=== PATIENT | male | born 1995 | race Caucasian/White ===

== ENCOUNTER 2017-04-04 20:35 | Inpatient (IN) | payer MEDICAID, OTHER ==
[~2017-04-04] VITALS: Ht 170.2 cm; Wt 72.0 kg
[~2017-04-04 20:35] MED LIST: CLON1 PO; DIVA500T52 PO; GUAN1TAB22 PO; OLAN10TA3 PO
[2017-04-04 20:58] LABS: BASOPHILS % (AUTO) 0.7 % (0.0-2.0); EOSINOPHILS % (AUTO) 5.3 % (1.0-6.0); HEMATOCRIT 43.5 % (41-53); LYMPHOCYTES # (AUTO) 2.2 K/uL (1.0-4.8); LYMPHOCYTES % (AUTO) 38.9 % (22.0-44.0); MEAN CORPUSCULAR HEMOGLOBIN 29.3 pg (26.0-34.0); MEAN CORPUSCULAR HGB CONC 34.5 G/dL (31.0-37.0); MEAN CORPUSCULAR VOLUME 85 fL (80-100); MONOCYTES # (AUTO) 0.7 K/uL (0.1-1.0); MONOCYTES % (AUTO) 11.5 % (2.0-9.0); NEUTROPHILS # (AUTO) 2.5 K/uL (1.8-7.7); NEUTROPHILS % (AUTO) 43.6 % (40.0-70.0); PLATELET COUNT (AUTO) 172 K/uL (150-450); RED BLOOD CELL COUNT(AUTO) 5.11 MIL/uL (4.50-5.90); RED CELL DISTRIBUTION WIDTH 14.1 % (11.5-14.5); WHITE BLOOD COUNT (AUTO) 5.8 K/uL (4.5-11.0)
[2017-04-04 21:04] LABS: ANION GAP 6 mmol/L (8-16); CALCIUM, TOTAL 8.8 mg/dL (8.8-10.5); CARBON DIOXIDE 31 mmol/L (22-29); CHLORIDE 107 mmol/L (98-107); CREATININE 0.96 mg/dL (0.60-1.30); GLOMERULAR FILTR. RATE CALC > 60 mL/min (>60); POTASSIUM 4.4 mmol/L (3.5-5.1); SODIUM SERUM 144 mmol/L (136-145); UREA NITROGEN, BLOOD 13 mg/dL (7-18)
[2017-04-04 21:10] LABS: ALANINE AMINOTRANSFERASE 68 U/L (12-78); ALBUMIN 3.9 g/dL (3.4-5.0); ASPARTATE AMINOTRANSFERASE 29 U/L (15-37); BILIRUBIN,TOTAL 0.4 mg/dL (0.1-1.0); TOTAL PROTEIN, SERUM 7.4 g/dL (6.4-8.2)
[2017-04-04] MEDS ORDERED: LORazepam 2 MG/ML VIAL IM ONE ×2 (22:45)
[2017-04-04] MEDS ORDERED: HALOPERIDOL LACTATE 5 MG/ML VIAL IM ONE ×2 (22:45)
[2017-04-04] MEDS ORDERED: DiphenhydrAMINE HCL 50 MG/ML VIAL IM ONE ×2 (22:45)
[2017-04-04 23:35] LABS: CHOL/HDL RATIO 2.8 (4.2-7.3); THYROID STIMULATING HORMONE 2.03 uIU/mL (0.36-3.74)
[2017-04-05 02:20] VITALS: BP 107/65
[2017-04-05 03:53] LABS: GLUCOSE,POINT OF CARE 78 MG/DL (70-110)
[2017-04-05] MEDS ORDERED: INFLUENZA VIRUS VACCINE QVS 2017-18 (3YR+)/PF 60 MCG/0.5 ML SYRINGE IM ONE (04:15)
[2017-04-05 08:19] LABS: BASOPHILS % (AUTO) 0.5 % (0.0-2.0); EOSINOPHILS % (AUTO) 5.1 % (1.0-6.0); HEMATOCRIT 41.1 % (41-53); HEMOGLOBIN 13.9 g/dL (13.5-17.5); LYMPHOCYTES # (AUTO) 3.1 K/uL (1.0-4.8); LYMPHOCYTES % (AUTO) 46.1 % (22.0-44.0); MEAN CORPUSCULAR HEMOGLOBIN 29.1 pg (26.0-34.0); MEAN CORPUSCULAR HGB CONC 33.9 G/dL (31.0-37.0); MEAN CORPUSCULAR VOLUME 86 fL (80-100); MONOCYTES # (AUTO) 0.7 K/uL (0.1-1.0); MONOCYTES % (AUTO) 9.9 % (2.0-9.0); NEUTROPHILS # (AUTO) 2.6 K/uL (1.8-7.7); NEUTROPHILS % (AUTO) 38.4 % (40.0-70.0); PLATELET COUNT (AUTO) 156 K/uL (150-450); RED BLOOD CELL COUNT(AUTO) 4.78 MIL/uL (4.50-5.90); WHITE BLOOD COUNT (AUTO) 6.7 K/uL (4.5-11.0)
[2017-04-05] MEDS ORDERED: LOPERAMIDE HCL 2 MG CAPSULE PO PRN (09:15)
[2017-04-05] MEDS ORDERED: ALBUTEROL SULFATE HFA 90 MCG/PUFF 8 GM INHALER IH PRN (09:15)
[2017-04-05] MEDS ORDERED: MAG HYDROX/AL HYDROX/SIMETH ES 30 ML SUSPENSION UDCUP PO PRN (09:15)
[2017-04-05] MEDS ORDERED: ACETAMINOPHEN 325 MG TABLET PO PRN (09:15)
[2017-04-05] MEDS ORDERED: MAGNESIUM HYDROXIDE SUSPENSION 30 ML UDCUP PO PRN (09:15)
[2017-04-05] MEDS ORDERED: CloNIDine HCL 0.1 MG TABLET PO PRN (09:15)
[2017-04-05] MEDS ORDERED: BENZOCAINE/MENTHOL LOZENGE MM PRN (09:15)
[2017-04-05] MEDS ORDERED: IBUPROFEN 600 MG TABLET PO PRN (09:15)
[2017-04-05] MEDS ORDERED: PETROLATUM,WHITE 71 GM JELLY TP PRN (09:15)
[2017-04-05] MEDS ORDERED: BACITRACIN 28.4 GM OINTMENT TP PRN (09:15)
[2017-04-05] MEDS ORDERED: ONDANSETRON HCL 4 MG TABLET PO PRN (09:15)
[2017-04-05 11:22] VITALS: BP 110/73
[2017-04-05 16:00] VITALS: BP 117/68
[2017-04-05] MEDS: LORazepam 2 MG TABLET PO PRN (18:58)
[2017-04-05] MEDS: HALOPERIDOL 5 MG TABLET PO PRN (18:58)
[2017-04-05] MEDS: DIVALPROEX SODIUM 500 MG DR TABLET PO SCH (20:25)
[2017-04-05] MEDS: OLANZapine 10 MG TABLET PO SCH (20:25)
[2017-04-06 06:35] VITALS: BP 135/76
[2017-04-06] MEDS: DIVALPROEX SODIUM 500 MG DR TABLET PO SCH ×2 (08:55→21:58)
[2017-04-06] MEDS: LORazepam 2 MG TABLET PO PRN ×3 (08:55→23:53)
[2017-04-06] MEDS: ClonazePAM 1 MG TABLET PO SCH ×3 (08:55→17:10)
[2017-04-06] MEDS: HALOPERIDOL 5 MG TABLET PO PRN ×2 (17:10→23:53)
[2017-04-06] MEDS: OLANZapine 10 MG TABLET PO SCH (21:59)
[2017-04-07] MEDS: ZOLPIDEM TARTRATE 10 MG TABLET PO PRN ×2 (00:46→21:50)
[2017-04-07] MEDS: LORazepam 2 MG TABLET PO PRN (10:00)
[2017-04-07] MEDS: DIVALPROEX SODIUM 500 MG DR TABLET PO SCH ×2 (10:01→20:51)
[2017-04-07] MEDS: ClonazePAM 1 MG TABLET PO SCH ×3 (10:01→17:17)
[2017-04-07] MEDS: HALOPERIDOL 5 MG TABLET PO PRN (10:01)
[2017-04-07 10:39] VITALS: BP 119/75
[2017-04-07 16:07] VITALS: BP 122/78
[2017-04-07] MEDS: OLANZapine 10 MG TABLET PO SCH (20:51)
[2017-04-08] MEDS: DIVALPROEX SODIUM 500 MG DR TABLET PO SCH ×2 (07:49→20:49)
[2017-04-08] MEDS: HALOPERIDOL 5 MG TABLET PO PRN ×2 (07:49→21:15)
[2017-04-08] MEDS: LORazepam 2 MG TABLET PO PRN (07:49)
[2017-04-08] MEDS: ClonazePAM 1 MG TABLET PO SCH ×3 (07:49→17:38)
[2017-04-08 16:14] VITALS: BP 119/79
[2017-04-08] MEDS: OLANZapine 10 MG TABLET PO SCH (20:50)
[2017-04-08] MEDS: ZOLPIDEM TARTRATE 10 MG TABLET PO PRN (21:15)
[2017-04-09] MEDS: LORazepam 2 MG TABLET PO PRN ×2 (00:12→21:52)
[2017-04-09] MEDS: HALOPERIDOL 5 MG TABLET PO PRN (05:04)
[2017-04-09 08:00] VITALS: BP 105/61
[2017-04-09] MEDS: ClonazePAM 1 MG TABLET PO SCH ×3 (08:26→18:00)
[2017-04-09] MEDS: DIVALPROEX SODIUM 500 MG DR TABLET PO SCH ×2 (08:26→20:46)
[2017-04-09 18:24] VITALS: BP 112/76
[2017-04-09] MEDS: OLANZapine 10 MG TABLET PO SCH (20:47)
[2017-04-09] MEDS: ZOLPIDEM TARTRATE 10 MG TABLET PO PRN (21:51)
[2017-04-10] MEDS: HALOPERIDOL 5 MG TABLET PO PRN (02:49)
[2017-04-10 02:50] VITALS: BP 140/73
[2017-04-10] MEDS: DIVALPROEX SODIUM 500 MG DR TABLET PO SCH ×2 (10:05→20:24)
[2017-04-10] MEDS: ClonazePAM 1 MG TABLET PO SCH ×3 (10:05→18:14)
[2017-04-10 17:34] VITALS: BP 134/76
[2017-04-10] MEDS: OLANZapine 10 MG TABLET PO SCH (20:24)
[2017-04-10] MEDS: ZOLPIDEM TARTRATE 10 MG TABLET PO PRN (20:24)
[2017-04-11] MEDS: DIVALPROEX SODIUM 500 MG DR TABLET PO SCH ×2 (08:09→20:21)
[2017-04-11] MEDS: ClonazePAM 1 MG TABLET PO SCH ×3 (08:09→17:50)
[2017-04-11] MEDS: HALOPERIDOL 5 MG TABLET PO PRN ×3 (08:44→22:55)
[2017-04-11] MEDS: OLANZapine 10 MG TABLET PO SCH (20:22)
[2017-04-11] MEDS: GuanFACINE HCL 1 MG TABLET PO SCH (20:22)
[2017-04-11] MEDS: ZOLPIDEM TARTRATE 10 MG TABLET PO PRN (21:57)
[2017-04-11] MEDS: LORazepam 2 MG TABLET PO PRN (22:55)
[2017-04-12] MEDS: ClonazePAM 1 MG TABLET PO SCH ×3 (08:07→16:16)
[2017-04-12] MEDS: HALOPERIDOL 5 MG TABLET PO PRN ×2 (08:07→11:35)
[2017-04-12] MEDS: DIVALPROEX SODIUM 500 MG DR TABLET PO SCH ×2 (08:07→21:02)
[2017-04-12] MEDS: GuanFACINE HCL 1 MG TABLET PO SCH ×2 (09:16→21:02)
[2017-04-12 10:19] VITALS: BP 122/65
[2017-04-12] MEDS: LORazepam 2 MG TABLET PO PRN (11:35)
[2017-04-12] MEDS: OLANZapine 10 MG TABLET PO SCH (21:02)
[2017-04-13] MEDS: GuanFACINE HCL 1 MG TABLET PO SCH ×2 (10:48→20:54)
[2017-04-13] MEDS: ClonazePAM 1 MG TABLET PO SCH ×3 (10:48→16:50)
[2017-04-13] MEDS: DIVALPROEX SODIUM 500 MG DR TABLET PO SCH ×2 (10:49→20:56)
[2017-04-13 16:05] VITALS: BP 128/78
[2017-04-13] MEDS: HALOPERIDOL 5 MG TABLET PO PRN (20:00)
[2017-04-13] MEDS: LORazepam 2 MG TABLET PO PRN (20:00)
[2017-04-13] MEDS: OLANZapine 10 MG TABLET PO SCH (20:56)
[2017-04-14] MEDS: ClonazePAM 1 MG TABLET PO SCH ×3 (08:42→17:54)
[2017-04-14] MEDS: GuanFACINE HCL 1 MG TABLET PO SCH ×2 (08:42→20:52)
[2017-04-14] MEDS: DIVALPROEX SODIUM 500 MG DR TABLET PO SCH ×2 (08:42→20:52)
[2017-04-14] MEDS: HALOPERIDOL 5 MG TABLET PO PRN (09:18)
[2017-04-14] MEDS: LORazepam 2 MG TABLET PO PRN (09:18)
[2017-04-14] MEDS: OLANZapine 10 MG TABLET PO SCH (20:52)
[2017-04-15 08:15] VITALS: BP 124/54
[2017-04-15] MEDS: ClonazePAM 1 MG TABLET PO SCH ×3 (09:25→17:40)
[2017-04-15] MEDS: GuanFACINE HCL 1 MG TABLET PO SCH ×2 (09:25→21:39)
[2017-04-15] MEDS: DIVALPROEX SODIUM 500 MG DR TABLET PO SCH ×2 (09:26→21:39)
[2017-04-15] MEDS: OLANZapine 10 MG TABLET PO SCH (21:39)
[2017-04-15] MEDS: ZOLPIDEM TARTRATE 10 MG TABLET PO PRN (21:40)
[2017-04-16 09:36] VITALS: BP 114/61
[2017-04-16] MEDS: GuanFACINE HCL 1 MG TABLET PO SCH ×2 (09:38→20:37)
[2017-04-16] MEDS: DIVALPROEX SODIUM 500 MG DR TABLET PO SCH ×2 (09:38→20:36)
[2017-04-16] MEDS: ClonazePAM 1 MG TABLET PO SCH ×3 (09:39→17:03)
[2017-04-16] MEDS: LORazepam 2 MG TABLET PO PRN (19:08)
[2017-04-16] MEDS: HALOPERIDOL 5 MG TABLET PO PRN (19:08)
[2017-04-16] MEDS: OLANZapine 10 MG TABLET PO SCH (20:37)
[2017-04-17] MEDS: DIVALPROEX SODIUM 500 MG DR TABLET PO SCH ×2 (09:26→20:33)
[2017-04-17] MEDS: GuanFACINE HCL 1 MG TABLET PO SCH ×2 (09:26→20:33)
[2017-04-17] MEDS: ClonazePAM 1 MG TABLET PO SCH ×3 (09:26→17:12)
[2017-04-17] MEDS: HALOPERIDOL 5 MG TABLET PO PRN ×2 (09:29→21:41)
[2017-04-17] MEDS: OLANZapine 10 MG TABLET PO SCH (20:33)
[2017-04-17] MEDS: LORazepam 2 MG TABLET PO PRN (21:41)
[2017-04-18] MEDS: HALOPERIDOL 5 MG TABLET PO PRN (10:09)
[2017-04-18] MEDS: DIVALPROEX SODIUM 500 MG DR TABLET PO SCH ×2 (10:09→21:18)
[2017-04-18] MEDS: GuanFACINE HCL 1 MG TABLET PO SCH ×2 (10:09→21:18)
[2017-04-18] MEDS: ClonazePAM 1 MG TABLET PO SCH ×3 (10:09→18:03)
[2017-04-18 12:47] VITALS: BP 128/84
[2017-04-18 17:14] VITALS: BP 115/68
[2017-04-18] MEDS: OLANZapine 10 MG TABLET PO SCH (21:18)
[2017-04-18] MEDS: ZOLPIDEM TARTRATE 10 MG TABLET PO PRN (22:34)
[2017-04-18] MEDS: LORazepam 2 MG TABLET PO PRN (22:34)
[2017-04-19] MEDS: HALOPERIDOL 5 MG TABLET PO PRN ×2 (08:47→13:46)
[2017-04-19] MEDS: LORazepam 2 MG TABLET PO PRN ×2 (08:48→13:46)
[2017-04-19 09:00] VITALS: BP 98/44
[2017-04-19] MEDS: GuanFACINE HCL 1 MG TABLET PO SCH ×2 (09:35→21:00)
[2017-04-19] MEDS: ClonazePAM 1 MG TABLET PO SCH ×3 (09:35→17:52)
[2017-04-19] MEDS: DIVALPROEX SODIUM 500 MG DR TABLET PO SCH ×2 (09:35→21:01)
[2017-04-19] MEDS: OLANZapine 10 MG TABLET PO SCH (21:00)
[2017-04-20] MEDS: ClonazePAM 1 MG TABLET PO SCH ×2 (08:31→12:31)
[2017-04-20] MEDS: GuanFACINE HCL 1 MG TABLET PO SCH (08:31)
[2017-04-20] MEDS: HALOPERIDOL 5 MG TABLET PO PRN (08:31)
[2017-04-20] MEDS: DIVALPROEX SODIUM 500 MG DR TABLET PO SCH (08:31)
[2017-04-20 08:44] VITALS: BP 117/60
== END 2017-04-20 12:30 | disposition home or self-care (01) | DRG 750 ==
LOC: EMS 20:36 → B3A 04-05 01:07 → 3EC 04-06 20:20 → 3EI 04-12 10:30
PROVIDERS: ADMIT Psychiatry & Neurology Psychiatry; ATTEND Psychiatry & Neurology Psychiatry
DX: F25.9 Schizoaffective disorder, unspecified (principal); Z78.1 Physical restraint status; F84.0 Autistic disorder; K59.00 Constipation, unspecified; F22 Delusional disorders; F41.9 Anxiety disorder, unspecified; F90.9 Attention-deficit hyperactivity disorder, unspecified type; G47.00 Insomnia, unspecified; Z28.21 Immunization not carried out because of patient refusal; Z79.899 Other long term (current) drug therapy; Z88.8 Allergy status to other drugs, medicaments and biological substances
CPT/HCPCS: 82962; 84443; 96372; 99285; G0480; J1200; J1630; J2060

== ENCOUNTER 2017-05-12 00:42 | Inpatient (IN) | payer MEDICAID ==
[~2017-05-12] VITALS: Ht 167.6 cm; Wt 64.4 kg
[2017-05-12] MEDS ORDERED: LORA1TAB3 PO (01:23)
[2017-05-12] MEDS ORDERED: DIVA500T52 PO (01:23)
[2017-05-12] MEDS ORDERED: HALO5 PO (01:23)
[2017-05-12] MEDS ORDERED: OLAN10TA3 PO (01:23)
[2017-05-12] MEDS ORDERED: GUAN1TAB22 PO ×2 (01:23)
[2017-05-12] MEDS ORDERED: OLAN5TAB2 PO (01:23)
[2017-05-12] MEDS ORDERED: CLON1 PO (01:23)
[2017-05-12 01:48] LABS: BASOPHILS % (AUTO) 0.1 % (0.0-2.0); EOSINOPHILS % (AUTO) 0.1 % (1.0-6.0); HEMOGLOBIN 13.2 g/dL (13.5-17.5); LYMPHOCYTES # (AUTO) 2.3 K/uL (1.0-4.8); MEAN CORPUSCULAR HEMOGLOBIN 28.8 pg (26.0-34.0); MEAN CORPUSCULAR HGB CONC 33.8 G/dL (31.0-37.0); MEAN CORPUSCULAR VOLUME 85 fL (80-100); MONOCYTES # (AUTO) 1.5 K/uL (0.1-1.0); MONOCYTES % (AUTO) 13.4 % (2.0-9.0); NEUTROPHILS # (AUTO) 7.1 K/uL (1.8-7.7); NEUTROPHILS % (AUTO) 65.4 % (40.0-70.0); PLATELET COUNT (AUTO) 180 K/uL (150-450); RED BLOOD CELL COUNT(AUTO) 4.58 MIL/uL (4.50-5.90); RED CELL DISTRIBUTION WIDTH 13.2 % (11.5-14.5); WHITE BLOOD COUNT (AUTO) 10.8 K/uL (4.5-11.0)
[2017-05-12] MEDS ORDERED: LORazepam 2 MG/ML VIAL IM ONE ×3 (02:00→18:00)
[2017-05-12] MEDS ORDERED: DiphenhydrAMINE HCL 50 MG/ML VIAL IM ONE ×2 (02:00→16:30)
[2017-05-12] MEDS ORDERED: HALOPERIDOL LACTATE 5 MG/ML VIAL IM ONE ×3 (02:00→18:00)
[2017-05-12 02:03] LABS: ANION GAP 4 mmol/L (8-16); CALCIUM, TOTAL 9.2 mg/dL (8.8-10.5); CARBON DIOXIDE 29 mmol/L (22-29); CHLORIDE 106 mmol/L (98-107); CREATININE 1.06 mg/dL (0.60-1.30); GLOMERULAR FILTR. RATE CALC > 60 mL/min (>60); POTASSIUM 4.2 mmol/L (3.5-5.1); SODIUM SERUM 139 mmol/L (136-145); UREA NITROGEN, BLOOD 11 mg/dL (7-18)
[2017-05-12 02:09] LABS: ALANINE AMINOTRANSFERASE 76 U/L (12-78); ALBUMIN 3.7 g/dL (3.4-5.0); ASPARTATE AMINOTRANSFERASE 63 U/L (15-37); BILIRUBIN,TOTAL 0.4 mg/dL (0.1-1.0); TOTAL PROTEIN, SERUM 6.8 g/dL (6.4-8.2); VALPROIC ACID 82 mcg/mL (50-100)
[2017-05-12] MEDS ORDERED: ZIPRASIDONE MESYLATE 20 MG/VIAL IM ONE (03:30)
[2017-05-12 13:23] VITALS: BP 119/76
[2017-05-12] MEDS: LORazepam 2 MG TABLET PO PRN (13:36)
[2017-05-12] MEDS: HALOPERIDOL 5 MG TABLET PO PRN (13:36)
[2017-05-12 16:02] VITALS: BP 128/79
[2017-05-12] MEDS: ClonazePAM 1 MG TABLET PO SCH (16:06)
[2017-05-12] MEDS ORDERED: LORazepam 2 MG/ML VIAL ONE (16:19)
[2017-05-12] MEDS ORDERED: DiphenhydrAMINE HCL 50 MG/ML VIAL ONE (16:20)
[2017-05-12] MEDS ORDERED: HALOPERIDOL LACTATE 5 MG/ML VIAL ONE (16:20)
[2017-05-12] MEDS ORDERED: ALBUTEROL SULFATE HFA 90 MCG/PUFF 8 GM INHALER IH PRN (18:30)
[2017-05-12] MEDS ORDERED: LOPERAMIDE HCL 2 MG CAPSULE PO PRN (18:30)
[2017-05-12] MEDS ORDERED: BACITRACIN 28.4 GM OINTMENT TP PRN (18:30)
[2017-05-12] MEDS ORDERED: CloNIDine HCL 0.1 MG TABLET PO PRN (18:30)
[2017-05-12] MEDS ORDERED: MAG HYDROX/AL HYDROX/SIMETH ES 30 ML SUSPENSION UDCUP PO PRN (18:30)
[2017-05-12] MEDS ORDERED: PETROLATUM,WHITE 71 GM JELLY TP PRN (18:30)
[2017-05-12] MEDS ORDERED: MAGNESIUM HYDROXIDE SUSPENSION 30 ML UDCUP PO PRN (18:30)
[2017-05-12] MEDS ORDERED: ONDANSETRON HCL 4 MG TABLET PO PRN (18:30)
[2017-05-12] MEDS ORDERED: IBUPROFEN 600 MG TABLET PO PRN (18:30)
[2017-05-12] MEDS ORDERED: ACETAMINOPHEN 325 MG TABLET PO PRN (18:30)
[2017-05-12] MEDS ORDERED: BENZOCAINE/MENTHOL LOZENGE [8 LOZENGES/PACKET] MM PRN (18:45)
[2017-05-12] MEDS: OLANZapine 10 MG TABLET PO SCH (20:38)
[2017-05-12] MEDS: DIVALPROEX SODIUM 500 MG DR TABLET PO SCH (20:38)
[2017-05-12] MEDS: GuanFACINE HCL 1 MG TABLET PO SCH (20:38)
[2017-05-12] MEDS: ZOLPIDEM TARTRATE 10 MG TABLET PO PRN (21:08)
[2017-05-13] MEDS: GuanFACINE HCL 1 MG TABLET PO SCH ×2 (09:03→20:27)
[2017-05-13] MEDS: ClonazePAM 1 MG TABLET PO SCH ×4 (09:03→16:13)
[2017-05-13] MEDS: DIVALPROEX SODIUM 500 MG DR TABLET PO SCH ×2 (09:03→20:27)
[2017-05-13] MEDS: HALOPERIDOL 5 MG TABLET PO PRN (16:03)
[2017-05-13] MEDS: OLANZapine 10 MG TABLET PO SCH (20:27)
[2017-05-13] MEDS: ZOLPIDEM TARTRATE 10 MG TABLET PO PRN (20:27)
[2017-05-14] MEDS: LORazepam 2 MG TABLET PO PRN ×2 (00:41→11:57)
[2017-05-14] MEDS: HALOPERIDOL 5 MG TABLET PO PRN ×2 (01:26→08:50)
[2017-05-14] MEDS: GuanFACINE HCL 1 MG TABLET PO SCH ×2 (08:49→21:00)
[2017-05-14] MEDS: ClonazePAM 1 MG TABLET PO SCH ×3 (08:49→17:00)
[2017-05-14] MEDS: DIVALPROEX SODIUM 500 MG DR TABLET PO SCH ×2 (08:49→21:00)
[2017-05-14] MEDS: OLANZapine 10 MG TABLET PO SCH (21:00)
[2017-05-15] MEDS: LORazepam 2 MG TABLET PO PRN ×4 (00:15→23:50)
[2017-05-15] MEDS: ZOLPIDEM TARTRATE 10 MG TABLET PO PRN ×2 (00:15→23:50)
[2017-05-15] MEDS: HALOPERIDOL 5 MG TABLET PO PRN ×2 (07:50→15:45)
[2017-05-15 08:10] VITALS: BP 160/67
[2017-05-15] MEDS: DIVALPROEX SODIUM 500 MG DR TABLET PO SCH ×2 (08:35→21:49)
[2017-05-15] MEDS: ClonazePAM 1 MG TABLET PO SCH ×3 (08:36→17:13)
[2017-05-15] MEDS: GuanFACINE HCL 1 MG TABLET PO SCH ×2 (08:36→21:49)
[2017-05-15] MEDS ORDERED: DiphenhydrAMINE HCL 50 MG/ML VIAL IM ONE (09:45)
[2017-05-15] MEDS ORDERED: LORazepam 2 MG/ML VIAL IM ONE (09:45)
[2017-05-15] MEDS ORDERED: LORazepam 2 MG/ML VIAL ONE (09:46)
[2017-05-15] MEDS ORDERED: DiphenhydrAMINE HCL 50 MG/ML VIAL ONE (09:46)
[2017-05-15 17:58] VITALS: BP 121/85
[2017-05-15] MEDS: OLANZapine 10 MG TABLET PO SCH (21:49)
[2017-05-16] MEDS: HALOPERIDOL 5 MG TABLET PO PRN ×2 (01:59→08:55)
[2017-05-16] MEDS: LORazepam 2 MG TABLET PO PRN (07:53)
[2017-05-16] MEDS: GuanFACINE HCL 1 MG TABLET PO SCH ×2 (08:55→20:05)
[2017-05-16] MEDS: ClonazePAM 1 MG TABLET PO SCH ×3 (08:55→17:31)
[2017-05-16] MEDS: DIVALPROEX SODIUM 500 MG DR TABLET PO SCH ×2 (08:55→20:06)
[2017-05-16] MEDS: OLANZapine 10 MG TABLET PO SCH (20:06)
[2017-05-16] MEDS: ZOLPIDEM TARTRATE 10 MG TABLET PO PRN (21:09)
[2017-05-17] MEDS: DIVALPROEX SODIUM 500 MG DR TABLET PO SCH ×2 (08:56→20:15)
[2017-05-17] MEDS: GuanFACINE HCL 1 MG TABLET PO SCH ×2 (08:57→20:16)
[2017-05-17] MEDS: ClonazePAM 1 MG TABLET PO SCH ×3 (08:57→18:28)
[2017-05-17] MEDS: OLANZapine 10 MG TABLET PO SCH (20:15)
[2017-05-17] MEDS: ZOLPIDEM TARTRATE 10 MG TABLET PO PRN (21:04)
[2017-05-18] MEDS: HALOPERIDOL 5 MG TABLET PO PRN (07:55)
[2017-05-18 08:10] VITALS: BP 126/74
[2017-05-18] MEDS: GuanFACINE HCL 1 MG TABLET PO SCH ×2 (08:14→20:13)
[2017-05-18] MEDS: DIVALPROEX SODIUM 500 MG DR TABLET PO SCH ×2 (08:14→20:13)
[2017-05-18] MEDS: ClonazePAM 1 MG TABLET PO SCH ×4 (08:14→18:30)
[2017-05-18] MEDS: OLANZapine 10 MG TABLET PO SCH (20:13)
[2017-05-19] MEDS: LORazepam 2 MG TABLET PO PRN (02:02)
[2017-05-19] MEDS: ZOLPIDEM TARTRATE 10 MG TABLET PO PRN (02:02)
[2017-05-19] MEDS: GuanFACINE HCL 1 MG TABLET PO SCH ×2 (08:41→23:09)
[2017-05-19] MEDS: ClonazePAM 1 MG TABLET PO SCH ×3 (08:41→17:55)
[2017-05-19] MEDS: DIVALPROEX SODIUM 500 MG DR TABLET PO SCH ×2 (08:42→23:09)
[2017-05-19] MEDS: OLANZapine 10 MG TABLET PO SCH (23:09)
[2017-05-20] MEDS: ZOLPIDEM TARTRATE 10 MG TABLET PO PRN ×2 (01:15→21:27)
[2017-05-20] MEDS: LORazepam 2 MG TABLET PO PRN ×3 (01:15→21:27)
[2017-05-20] MEDS: GuanFACINE HCL 1 MG TABLET PO SCH ×2 (08:21→20:01)
[2017-05-20] MEDS: DIVALPROEX SODIUM 500 MG DR TABLET PO SCH ×2 (08:22→20:01)
[2017-05-20] MEDS: HALOPERIDOL 5 MG TABLET PO PRN ×2 (08:22→12:54)
[2017-05-20] MEDS: ClonazePAM 1 MG TABLET PO SCH ×3 (08:22→17:29)
[2017-05-20] MEDS: OLANZapine 10 MG TABLET PO SCH (20:02)
[2017-05-21] MEDS: ClonazePAM 1 MG TABLET PO SCH ×3 (08:57→16:28)
[2017-05-21] MEDS: GuanFACINE HCL 1 MG TABLET PO SCH (08:57)
[2017-05-21] MEDS: DIVALPROEX SODIUM 500 MG DR TABLET PO SCH (08:57)
[2017-05-21] MEDS: HALOPERIDOL 5 MG TABLET PO PRN (08:58)
== END 2017-05-21 16:30 | disposition home or self-care (01) | DRG 750 ==
LOC: EMS 00:43 → 3EC 11:56
PROVIDERS: ADMIT Psychiatry & Neurology Psychiatry; ATTEND Psychiatry & Neurology Psychiatry
DX: F25.9 Schizoaffective disorder, unspecified (principal); F22 Delusional disorders; F84.0 Autistic disorder; F41.9 Anxiety disorder, unspecified; F90.9 Attention-deficit hyperactivity disorder, unspecified type; G47.00 Insomnia, unspecified; Z56.0 Unemployment, unspecified; Z88.8 Allergy status to other drugs, medicaments and biological substances
CPT/HCPCS: 87081; 96372; 99285; G0480; J1200; J1630; J2060; J3230; J3486

== ENCOUNTER 2017-07-31 03:06 | Emergency (ER) | payer MEDICAID ==
[~2017-07-31] VITALS: Ht 175.3 cm; Wt 68.0 kg
[2017-07-31] MEDS ORDERED: OLAN10TA3 PO (03:11)
[2017-07-31 03:38] LABS: BASOPHILS % (AUTO) 0.4 % (0.0-2.0); EOSINOPHILS % (AUTO) 1.6 % (1.0-6.0); HEMATOCRIT 39.6 % (41-53); HEMOGLOBIN 13.4 g/dL (13.5-17.5); LYMPHOCYTES # (AUTO) 2.1 K/uL (1.0-4.8); LYMPHOCYTES % (AUTO) 42.4 % (22.0-44.0); MEAN CORPUSCULAR HEMOGLOBIN 29.3 pg (26.0-34.0); MEAN CORPUSCULAR HGB CONC 33.8 G/dL (31.0-37.0); MEAN CORPUSCULAR VOLUME 86 fL (80-100); MONOCYTES # (AUTO) 0.7 K/uL (0.1-1.0); MONOCYTES % (AUTO) 13.6 % (2.0-9.0); PLATELET COUNT (AUTO) 138 K/uL (150-450); RED BLOOD CELL COUNT(AUTO) 4.58 MIL/uL (4.50-5.90); RED CELL DISTRIBUTION WIDTH 15.6 % (11.5-14.5)
[2017-07-31 03:40] LABS: ANION GAP 7 mmol/L (8-16); CALCIUM, TOTAL 8.8 mg/dL (8.8-10.5); CARBON DIOXIDE 29 mmol/L (22-29); CHLORIDE 102 mmol/L (98-107); CREATININE 0.76 mg/dL (0.60-1.30); GLOMERULAR FILTR. RATE CALC > 60 mL/min (>60); GLUCOSE,RANDOM 74 mg/dL (70-110); POTASSIUM 4.1 mmol/L (3.5-5.1); SODIUM SERUM 138 mmol/L (136-145); UREA NITROGEN, BLOOD 17 mg/dL (7-18)
[2017-07-31 03:46] LABS: ALANINE AMINOTRANSFERASE 61 U/L (12-78); ALBUMIN 3.4 g/dL (3.4-5.0); ALKALINE PHOSPHATASE 98 U/L (46-116); ASPARTATE AMINOTRANSFERASE 46 U/L (15-37); BILIRUBIN,TOTAL 0.5 mg/dL (0.1-1.0); TOTAL PROTEIN, SERUM 6.4 g/dL (6.4-8.2)
[2017-07-31 03:59] LABS: VALPROIC ACID 89 mcg/mL (50-100)
[2017-07-31] MEDS ORDERED: LORazepam 2 MG/ML VIAL IM ONE (04:00)
[2017-07-31] MEDS ORDERED: HALOPERIDOL LACTATE 5 MG/ML VIAL IM ONE (04:00)
[2017-07-31] MEDS ORDERED: DiphenhydrAMINE HCL 50 MG/ML VIAL IM ONE (04:00)
[2017-07-31 04:40] LABS: AMPHET/METH SCREEN,URINE NEGATIVE (NEGATIVE); BARBITURATE SCREEN, URINE NEGATIVE (NEGATIVE); BENZODIAZEPINES SCREEN,URINE NEGATIVE (NEGATIVE); CANNABINOID SCREEN,URINE NEGATIVE (NEGATIVE); COCAINE SCREEN,URINE NEGATIVE (NEGATIVE); METHADONE SCREEN, URINE NEGATIVE (NEGATIVE); OPIATE SCREEN,URINE NEGATIVE (NEGATIVE)
[2017-07-31 04:41] LABS: PHENCYCLIDINE SCREEN,URINE NEGATIVE (NEGATIVE)
[2017-07-31 12:11] VITALS: BP 144/104
[2017-07-31] MEDS ORDERED: LORazepam 2 MG TABLET PO ONE ×2 (12:15)
== END 2017-07-31 13:27 | disposition home or self-care (01) ==
LOC: EMS 03:08
DX: F84.0 Autistic disorder (principal); R46.89 Other symptoms and signs involving appearance and behavior; Z88.8 Allergy status to other drugs, medicaments and biological substances
CPT/HCPCS: 36415; 80053; 80164; 80307; 85025; 96372; 99284; G0480; J1200; J1630; J2060